=== PATIENT | female | born 1990 ===

== ENCOUNTER 2017-03-06 13:48 | Emergency (ER) | payer SELFPAY ==
[2017-03-06 13:58] VITALS: BP 131/85
[2017-03-06 14:23] LABS: Basophils % (Auto) 0.7 % (0.0-1.8); Eosinophils % (Auto) 1.5 % (0.0-4.3); Hematocrit 39.7 % (30.3-42.9); Hemoglobin 13.2 gm/dl (10.1-14.3); Mean Corpuscular HGB Conc 33 % (30-34); Mean Corpuscular Hemoglobin 28 pg (28-32); Mean Corpuscular Volume 85 fl (79-97); Red Blood Count 4.68 M/mm3 (3.65-5.03); Red Cell Distribution Width 14.8 % (13.2-15.2); White Blood Count 7.3 K/mm3 (4.5-11.0)
[2017-03-06 14:29] LABS: Platelet Count 216 K/mm3 (140-440)
[2017-03-06 14:59] LABS: Bacteria,Urine 1+ /HPF (Negative)
[2017-03-06 15:00] LABS: Bilirubin,Urine NEG (Negative); Blood,Urine MOD (Negative); Ketones,Urine NEG (Negative); Leukocyte Esterase,Urine TR (Negative); Nitrite,Urine NEG (Negative); Urobilinogen,Urine < 2.0 mg/dL (<2.0)
[2017-03-06 15:01] LABS: RBC,Urine > 182.0 /HPF (0.0-6.0)
== END 2017-03-06 16:32 | disposition left against medical advice (07) ==
LOC: ED 13:48
DX: O20.9 Hemorrhage in early pregnancy, unspecified (principal); Z3A.01 Less than 8 weeks gestation of pregnancy; Z53.21 Procedure and treatment not carried out due to patient leaving prior to being seen by health care provider
CPT/HCPCS: 36415; 81001; 84702; 85025; 86850; 86900; 86901